=== PATIENT | male | born 2000 ===

== ENCOUNTER 2019-08-16 03:37 | Emergency (ER) | payer SELFPAY ==
[~2019-08-16] VITALS: Ht 182.9 cm; Wt 95.5 kg
[2019-08-16 03:40] VITALS: BP 140/50
--- NOTE | 2019-08-16 04:07 | NUR ---
THIS IS A 19 YO MALE COMING IN FOR SORE THROAT/COUGH FOR THE PAST TWO DAYS, WITH NAUSEA. DENIES VOMITING OR DIARRHEA. DENIES ANY RECENT TRAVEL OR NEAR ANYONE WITH REENT TRAVEL, DENIES FEVER/CHILLS/BODY ACHES. HX OF ASTHMA. LUNG SOUNDS DIMIMISHED THROUGHOUT. DENIES CHEST PAIN. PATIENT SPEAKING IN FULL SENTENCES, FREQUENTLY COUGHING. DENIES ABD PAIN. VSS, SPO2 AND BP MONITORING IN PLACE, CALL LIGHT IN REACH.
--- NOTE | 2019-08-16 05:56 | NUR ---
Patient/Caregiver given discharge instructions and they have confirmed that they understand the instructions. Patient ambulatory with steady gait.
== END 2019-08-16 06:01 | disposition home or self-care (01) ==
LOC: ED 05:50
DX: B34.9 Viral infection, unspecified (principal); J45.909 Unspecified asthma, uncomplicated; F17.200 Nicotine dependence, unspecified, uncomplicated
CPT/HCPCS: 99283